=== PATIENT | female | born 1950 | race Caucasian/White ===

== ENCOUNTER 2018-09-13 08:54 | Emergency (ER) | payer BC ==
[~2018-09-13] VITALS: Ht 170.2 cm; Wt 94.8 kg
--- NOTE | 2018-09-13 08:54 | NUR ---
PT BIBA FULL ARREST TO ER BED 10
--- NOTE | 2018-09-13 08:55 | NUR ---
68/F BIBA FOR FULL ARREST. LAST KNOWN NORMAL 5MIN BEFORE TECHNICAL SUPPORT PROFESSIONAL ARRIVAL, JONE WORKED ON PT FOR ABOUT 30MIN IN FIELD BEFORE ARRIVAL. IO IN L LEG, GIVEN 8 ROUNDS OF EPI, DEFIBRILATRED X2, HAD V-FIB UPON ARRIVAL, PT WENT INTO [facility]. PT ENTUBATED IN FIELD WITH 6FR, 20 AT TEETH MEDHX:DM II, LEFT LEGALLY BLIND, AND HTN, LEFT EYE SUGURY 9 DAYS AGO. Addendum: 09/13/18 at 0938 by [email or web address] SEE CODE BLUE RECORD ;FULL ARREST PAPER. Addendum: 09/13/18 at 1034 by [email or web address] SON REPORTED PT FELL IN HER BED X 1 WEEK AGO. DENIES LOC OR N/V.SKIN NO PROBLEM.
--- NOTE | 2018-09-13 09:04 | NUR ---
PT PRONOUSE AT 903.
--- NOTE | 2018-09-13 09:15 | NUR ---
FAMILY AT BEDSIDE.
--- NOTE | 2018-09-13 09:18 | NUR ---
CALLED [facility];ANGELICA
--- NOTE | 2018-09-13 09:35 | NUR ---
CALLED [facility], REPORT GIVEN TO ERICA.
--- NOTE | 2018-09-13 09:36 | NUR ---
PT PRONOUSE AT 903.
--- NOTE | 2018-09-13 10:22 | NUR ---
CALLED DR CASSIE GONZALEZ, PATIENTS PRIMARY [phone]. Addendum: 09/13/18 at 1028 by [email or web address] Amendment undone in EDM - 09/13/18 at 1029 by [email or web address] INFORMED TO LESTER. Addendum: 09/13/18 at 1029 by [email or web address] INFORMED TO LESTER.
[2018-09-13] MEDS ORDERED: THYR60TA7 PO (10:43)
[2018-09-13] MEDS ORDERED: METF1000 PO (10:43)
[2018-09-13] MEDS ORDERED: METO25TA PO (10:43)
[2018-09-13] MEDS ORDERED: OFLO5SOL OP (10:43)
[2018-09-13] MEDS ORDERED: DORZ10SO3 OP (10:43)
[2018-09-13] MEDS ORDERED: SIMV20TA1 PO (10:43)
[2018-09-13] MEDS ORDERED: AMLO10TA PO (10:43)
[2018-09-13] MEDS ORDERED: BLEOS OP (10:43)
[2018-09-13] MEDS ORDERED: FENO145T PO (10:43)
[2018-09-13] MEDS ORDERED: XALOS OP (10:43)
[2018-09-13] MEDS ORDERED: ALPOS OP (10:43)
[2018-09-13] MEDS ORDERED: LEVO0.114 PO (10:43)
[2018-09-13] MEDS ORDERED: LOSA100T51 PO (10:43)
[2018-09-13] MEDS ORDERED: DIA250 PO (10:43)
--- NOTE | 2018-09-13 11:14 | NUR ---
UPDATED AND COMFORTED FAMILY, OFFERED WATER
--- NOTE | 2018-09-13 11:54 | NUR ---
SPOKE TO GULSHAN FROM [facility] FOR PT'S INFORMATION .
--- NOTE | 2018-09-13 12:43 | NUR ---
SPOKE TO [facility]. SAID THEY WOULD CALL BACK IN AN HOUR.
--- NOTE | 2018-09-13 13:56 | NUR ---
called client manager [employer]. no eta given at this time.
--- NOTE | 2018-09-13 14:03 | NUR ---
SPOKE TO DELORES; [facility].
--- NOTE | 2018-09-13 15:11 | NUR ---
OFFER FOOD FOR PT'S
--- NOTE | 2018-09-13 15:16 | NUR ---
SPOKE TO DELORES; [facility].
--- NOTE | 2018-09-13 15:52 | NUR ---
RAMSES SPOKE TO SALAZAR;ACCOUNT DEVELOPMENT EXECUTIVE.
--- NOTE | 2018-09-13 16:35 | NUR ---
[facility]
--- NOTE | 2018-09-13 16:51 | NUR ---
[facility] NUMBER IS [phone] PNEUMATIC TUBE FITTER [phone]
== END 2018-09-13 09:04 | disposition expired ==
LOC: MED 08:54
DX: I46.9 Cardiac arrest, cause unspecified (principal); Z79.899 Other long term (current) drug therapy
CPT/HCPCS: 92950; 99285